=== PATIENT | female | born 1955 | race Hispanic/Latino ===

== ENCOUNTER 2018-10-15 11:56 | Inpatient (IN) | payer MEDICAID ==
[2018-10-15] MEDS ORDERED: Iohexol 240 (50 ml) PO STA (13:23)
[2018-10-15] MEDS ORDERED: Sodium Chloride 0.9% 1,000 ML IV STA (13:23)
[2018-10-15 14:05] LABS: BASO % 0.2 % (0.0-2.0); HEMOGLOBIN 11.9 g/dL (11.0-16.0); LYMPH # 1.2 K/uL (1.0-4.3); LYMPH % 8.4 % (20.0-40.0); MEAN CELL VOLUME 90.6 fL (81.0-99.0); MEAN CORPUSCULAR HEMOGLOBIN 30.8 pg (27.0-31.0); MEAN PLATELET VOLUME 9.5 fL (7.2-11.7); MONO # 0.9 K/uL (0.0-0.8); MONO % 6.2 % (0.0-10.0); NEUT # 12.6 K/uL (1.8-7.0); NEUT % 85.2 % (50.0-75.0); NRBC % 0.1 % (0.0-2.0); PLATELET COUNT 260 K/uL (130-400); RBC 3.87 Mil/uL (3.80-5.20); RED CELL DISTRIBUTION WIDTH 12.3 % (11.5-14.5); WHITE BLOOD COUNT 14.8 K/uL (4.8-10.8)
[2018-10-15] MEDS ORDERED: Iohexol 240 (50 ml) ONE (14:05)
[2018-10-15 14:18] LABS: ALBUMIN 4.4 g/dL (3.5-5.0); ALT/SGPT 11 U/L (9-52); AST/SGOT 18 U/L (14-36); BLOOD UREA NITROGEN 13 mg/dL (7-17); CALCIUM 9.2 mg/dl (8.6-10.4); GFR NON-AFRICAN AMERICAN > 60; LIPASE 44 U/L (23-300)
[2018-10-15 14:26] LABS: LYMPHOCYTE 11 % (20-40); MONOCYTE 3 % (0-10); NEUTROPHIL 86 % (50-75); TOTAL CELLS COUNTED 100
[2018-10-15 14:27] LABS: PLATELET ESTIMATE NORMAL (NORMAL)
[2018-10-15 14:43] LABS: SQUAMOUS EPITHIAL < 1 /hpf (0-5); URINE BACTERIA OCC (<OCC); URINE BILIRUBIN NEGATIVE (NEGATIVE); URINE BLOOD 1+ (NEGATIVE); URINE CLARITY Hazy (Clear); URINE COLOR Yellow (YELLOW); URINE GLUCOSE (UA) NORMAL (Normal); URINE LEUKOCYTE ESTERASE 3+ Leu/uL (Negative); URINE PROTEIN 2+ mg/dL (NEGATIVE); URINE UROBILINOGEN NORMAL mg/dL (0.2-1.0); WBC CLUMPS FEW /hpf
--- NOTE | 2018-10-15 15:08 | C.PDOC ---
History Of Present Illness 63 year old female with complaint of right-sided abdominal pain that streatches from the right upper quadrant to the right lower quadrant that began yesterday. Patient also states that she has experienced two episodes of diarrhea.Patient denies nausea and vomiting. Time Seen by Provider: 10/15/18 12:41 Chief Complaint (Nursing): Flu-like Symptoms History Per: Patient History/Exam Limitations: no limitations Onset/Duration Of Symptoms: Days (1) Current Symptoms Are (Timing): Still Present Location Of Pain/Discomfort: RUQ, RLQ Quality Of Discomfort: "Pain" Associated Symptoms: Diarrhea (2 episodes). denies: Fever, Nausea, Vomiting Past Medical History Reviewed: Historical Data, Nursing Documentation, Vital Signs Vital Signs: Last Vital Signs Temp 98.6 F 10/15/18 12:08 Pulse 99 H 10/15/18 12:08 Resp 18 10/15/18 12:08 BP 125/80 10/15/18 12:08 Pulse Ox 98 10/15/18 12:08 - Medical History PMH: No Chronic Diseases Surgical History: No Surg Hx Family History: States: Unknown Family Hx - Social History Hx Alcohol Use: No Hx Substance Use: No - Immunization History Hx Influenza Vaccination: Yes Hx Pneumococcal Vaccination: No Review Of Systems Constitutional: Negative for: Fever, Chills, Weakness Gastrointestinal: Positive for: Abdominal Pain (right-sided), Diarrhea (2 episodes). Negative for: Nausea, Vomiting Neurological: Negative for: Weakness, Numbness, Dizziness Physical Exam - Physical Exam Appears: Well, Non-toxic, No Acute Distress Skin: Normal Color, Warm, Dry Head: Atraumatic, Normacephalic Eye(s): bilateral: Normal Inspection Neck: Normal ROM Chest: Symmetrical, No Deformity Cardiovascular: Rhythm Regular, No Murmur Respiratory: Normal Breath Sounds, No Rales, No Rhonchi, No Wheezing Gastrointestinal/Abdominal: Soft, Tenderness (to RUQ and RLQ), No Guarding, No Other (Dsouza's sign) Extremity: Capillary Refill (<2 seconds) Extremity: Bilateral: Atraumatic, Normal Color And Temperature Pulses: Left Radial: Normal, Right Radial: Normal Neurological/Psych: Oriented x3, Normal Speech, Normal Cognition ED Course And Treatment - Laboratory Results Result Diagrams: 10/15/18 13:56 10/15/18 13:56 Lab Results: Total Bilirubin 0.8 mg/dL (0.2-1.3) 10/15/18 13:56 AST 18 U/L (14-36) 10/15/18 13:56 ALT 11 U/L (9-52) 10/15/18 13:56 Alkaline Phosphatase 94 U/L (38-126) 10/15/18 13:56 Total Protein 8.7 g/dL (6.3-8.3) H 10/15/18 13:56 Albumin 4.4 g/dL (3.5-5.0) 10/15/18 13:56 Globulin 4.3 gm/dL (2.2-3.9) H 10/15/18 13:56 Albumin/Globulin Ratio 1.0 (1.0-2.1) 10/15/18 13:56 Lipase 44 U/L (23-300) 10/15/18 13:56 Urine Color Yellow (YELLOW) 10/15/18 14:20 Urine Clarity Hazy (Clear) 10/15/18 14:20 Urine pH 5.0 (5.0-8.0) 10/15/18 14:20 Ur Specific [place] 1.013 (1.003-1.030) 10/15/18 14:20 Urine Protein 2+ mg/dL (NEGATIVE) H 10/15/18 14:20 Urine Glucose (UA) Normal mg/dL (Normal) 10/15/18 14:20 Urine Ketones Trace mg/dL (NEGATIVE) 10/15/18 14:20 Urine Blood 1+ (NEGATIVE) H 10/15/18 14:20 Urine Nitrate Negative (NEGATIVE) 10/15/18 14:20 Urine Bilirubin Negative (NEGATIVE) 10/15/18 14:20 Urine Urobilinogen Normal mg/dL (0.2-1.0) 10/15/18 14:20 Ur Leukocyte Esterase 3+ Viola/uL (Negative) H 10/15/18 14:20 Urine WBC (Auto) 359 /hpf (0-5) H 10/15/18 14:20 Urine RBC (Auto) 5 /hpf (0-3) H 10/15/18 14:20 Urine WBC Clumps (Auto) Few /hpf (NONE) H 10/15/18 14:20 Ur Squamous Epith Cells < 1 /hpf (0-5) 10/15/18 14:20 Urine Bacteria Occ (<OCC) H 10/15/18 14:20 O2 Sat by Pulse Oximetry: 98 (RA) - CT Scan/US Abdomen/Pelvis Other Rad Studies (CT/US): Interpreted By Me CT/US Interpretation: Accession No. : [id number]. Patient Name / ID : CARLOS COSTA / [id number]. Exam Date : 10/15/2018 16:39:47 ( Approved ). Study Comment : Sex / Age : F / 63Y. Creator : Yocasta Hernandez. Dictator : Aster Schmid MD. Adobe Layer : Zigzag Machine Operator : Aster Schmid MD. Approver2 : Report Date : 10/15/2018 16:50:28. My Comment : . PROCEDURE: CT Abdomen and Pelvis with oral and IV contrast. HISTORY: RUQ and RLQ pain. COMPARISON: None available. TECHNIQUE: Contiguous axial images of the abdomen and pelvis. Oral and IV contrast was administered. Coronal and Sagittal reformats generated and reviewed. Contrast dose: 100 mL Omnipaque 350 IV. Radiation dose: Total exam DLP = 426.05 mGy-cm. This CT exam was performed using one or more of the following dose reduction techniques: Automated exposure control, adjustment of the mA and/or kV according to patient size, and/or use of iterative reconstruction technique. FINDINGS: LOWER THORAX: No visible consolidation, pleural effusion, or pneumothorax. LIVER: Unremarkable. GALLBLADDER AND BILE DUCTS: Unremarkable. PANCREAS: Pancreatic atrophy. SPLEEN: Unremarkable. ADRENALS: Unremarkable. KIDNEYS AND URETERS: The kidneys enhance symmetrically. No hydronephrosis or obstructing renal calculus. Bmajl-[id number]-jiil-left perinephric inflammatory stranding. Mild proximal bilateral ureteral prominence and questionable subtle enhancement; correlate clinically for possibility of infection. BLADDER: The urinary bladder appears unremarkable. REPRODUCTIVE: Uterus is present. APPENDIX: The appendix appears within normal limits of caliber. No secondary signs of acute appendicitis. BOWEL: The stomach is nondistended. The bowel loops appear within normal limits of caliber without evidence of intestinal obstruction. PERITONEUM: No significant free fluid. No definite free air. LYMPH NODES: No bulky lymphadenopathy identified. VASCULATURE: No aortic aneurysm. Mild atherosclerotic calcifications. BONES: Mild degenerative changes. OTHER FINDINGS: None. IMPRESSION: Right greater than left nonspecific perinephric stranding. Mild proximal bilateral ureteral prominence and questionable subtle enhancement; correlate clinically for possibility of infection. The appendix appears within normal limits of caliber. No secondary signs of acute appendicitis. Progress Note: Abd/ pelvis CT,CMP, Lipase, Urine culture, and urinalysis ordered for patient. Patient was given Iohexol PO and NaCl IV. UA shows + bacteria, WBC, and blood. CT scan confirms diagnosis of pyelonephritis. Spoke with Dr. Jacinto, accepts patient for observation and IV antibiotics. Disposition - Disposition Disposition: HOSPITALIZED Disposition Time: 18:24 Condition: FAIR Forms: [facility] (Serbian) - Clinical Impression Clinical Impression: Pyelonephritis - PA / ORTHOTIC PRACTITIONER / Resident Statement MD/DO has reviewed & agrees with the documentation as recorded. (Tracie Simmons) - Scribe Statement The provider has reviewed the documentation as recorded by the Scribe (Tracie Simmons) All medical record entries made by the Scribe were at my direction and per sonally dictated by me. I have reviewed the chart and agree that the record accurately reflects my personal performance of the history, physical exam, medical decision making, and the department course for this patient. I have also personally directed, reviewed, and agree with the discharge instructions and disposition. Decision To Admit - Pt Status Changed To: Hospital Disposition Of: Observation - . Bed Request Type: Regular Admitting Physician: Feroz Jacinto Patient Diagnosis: Pyelonephritis
--- NOTE | 2018-10-15 17:27 | CT ---
PROCEDURE: CT Abdomen and Pelvis with oral and IV contrast. HISTORY: RUQ and RLQ pain COMPARISON: None available TECHNIQUE: Contiguous axial images of the abdomen and pelvis. Oral and IV contrast was administered. Coronal and Sagittal reformats generated and reviewed. Contrast dose: 100 mL Omnipaque 350 IV Radiation dose: Total exam DLP = 426.05 mGy-cm. This CT exam was performed using one or more of the following dose reduction techniques: Automated exposure control, adjustment of the mA and/or kV according to patient size, and/or use of iterative reconstruction technique. FINDINGS: LOWER THORAX: No visible consolidation, pleural effusion, or pneumothorax. LIVER: Unremarkable. GALLBLADDER AND BILE DUCTS: Unremarkable. PANCREAS: Pancreatic atrophy. SPLEEN: Unremarkable. ADRENALS: Unremarkable. KIDNEYS AND URETERS: The kidneys enhance symmetrically. No hydronephrosis or obstructing renal calculus. Fbrxb-ejqcjjs-rsii-left perinephric inflammatory stranding. Mild proximal bilateral ureteral prominence and questionable subtle enhancement; correlate clinically for possibility of infection. BLADDER: The urinary bladder appears unremarkable. REPRODUCTIVE: Uterus is present. APPENDIX: The appendix appears within normal limits of caliber. No secondary signs of acute appendicitis. BOWEL: The stomach is nondistended. The bowel loops appear within normal limits of caliber without evidence of intestinal obstruction. PERITONEUM: No significant free fluid. No definite free air. LYMPH NODES: No bulky lymphadenopathy identified. VASCULATURE: No aortic aneurysm. Mild atherosclerotic calcifications. BONES: Mild degenerative changes. OTHER FINDINGS: None. IMPRESSION: Right greater than left nonspecific perinephric stranding. Mild proximal bilateral ureteral prominence and questionable subtle enhancement; correlate clinically for possibility of infection. The appendix appears within normal limits of caliber. No secondary signs of acute appendicitis.
--- NOTE | 2018-10-15 19:39 | CP.PCM.HP ---
<Chintan Siddiqui - Last Filed: 10/15/18 20:33> History of Present Illness - History of Present Illness History of Present Illness: PGY1 H&P for Medicine Hospitalist CC: abdominal pain, dysuria This is a 63 year old female with no significant PMH who presents with worsening abdominal pain with dysuria, urinary frequency for the past 2 days. She describes the pain as sharp. Patient also endorses tactile fever and chills during this same time, with associated palpitations. She denies headache, dizziness, lightheadedness, chest pain, sob, n/v, hematochezia, melena, hematuria, vaginal discharge, recent illness, recent travel, recent hospitalizations, recent antibiotics use. Pt also reports 2 isolated incidents of loose bowel movements 2 days ago, denies recurrence since. She has not taken any medications at home for the pain. PMD: none PMH: denies PSH: c/s x1 Meds: denies Allx: lettuce and pepper - anaphylaxis FHx: Father, mother, and sister with DM, HTN, father also has prostate cancer SHx:Denies drug, alcohol, tobacco use, lives with daughter in , recently moved from [place] Present on Admission - Present on Admission Any Indicators Present on Admission: No Past Patient History - Past Social History Smoking Status: Never Smoked - PSYCHIATRIC Hx Substance Use: No - SURGICAL HISTORY Hx Surgeries: No - ANESTHESIA Hx Anesthesia: No Meds Allergies/Adverse Reactions: Allergies Allergy/AdvReac Type Severity Reaction Status Date / Time No Known Allergies Allergy Verified 10/15/18 12:08 Physical Exam - Constitutional Appears: Non-toxic, No Acute Distress - Head Exam Head Exam: ATRAUMATIC, NORMAL INSPECTION - Eye Exam Eye Exam: EOMI, Normal appearance - ENT Exam ENT Exam: Mucous Membranes Dry - Neck Exam Neck exam: Positive for: Normal Inspection - Respiratory Exam Respiratory Exam: Clear to Auscultation Bilateral, NORMAL BREATHING PATTERN. absent: Rales, Respiratory Distress, Stridor - Cardiovascular Exam Cardiovascular Exam: Tachycardia, +S1, +S2 (prominent s2). absent: Systolic Murmur - GI/Abdominal Exam GI & Abdominal Exam: Normal Bowel Sounds, Soft, Tenderness (right flank tenderness). absent: Distended, Firm, Guarding, Rebound, Rigid - Extremities Exam Extremities exam: Positive for: normal capillary refill, normal inspection. Negative for: calf tenderness, pedal edema - Back Exam Back exam: CVA tenderness (R), NORMAL INSPECTION. absent: CVA tenderness (L) - Neurological Exam Neurological exam: Alert, Oriented x3 - Psychiatric Exam Psychiatric exam: Normal Affect, Normal Mood - Skin Skin Exam: Dry, Normal Color, Warm Additional comments: decreased skin turgor Results - Vital Signs Recent Vital Signs: Last Vital Signs Temp 98.3 F 10/15/18 17:09 Pulse 90 10/15/18 17:09 Resp 18 10/15/18 17:09 BP 161/86 H 10/15/18 17:09 Pulse Ox 98 10/15/18 18:40 - Labs Result Diagrams: 10/15/18 13:56 10/15/18 13:56 Labs: Laboratory Results - last 24 hr 10/15/18 10/15/18 10/15/18 13:56 13:56 14:20 WBC 14.8 H RBC 3.87 Hgb 11.9 Hct 35.1 MCV 90.6 MCH 30.8 MCHC 34.0 RDW 12.3 Plt Count 260 MPV 9.5 Neut % (Auto) 85.2 H Lymph % (Auto) 8.4 L Stevens % (Auto) 6.2 Eos % (Auto) 0.0 Baso % (Auto) 0.2 Neut # (Auto) 12.6 H Lymph # (Auto) 1.2 Stevens # (Auto) 0.9 H Eos # (Auto) 0.0 Baso # (Auto) 0.0 Neutrophils % (Manual) 86 H Lymphocytes % (Manual) 11 L Monocytes % (Manual) 3 Platelet Estimate Normal RBC Morphology Normal Sodium 136 Potassium 3.8 Chloride 97 L Carbon Dioxide 32 H Anion Gap 11 BUN 13 Creatinine 0.8 Est GFR ( Amer) > 60 Est GFR (Non-Af Amer) > 60 Random Glucose 117 H Calcium 9.2 Total Bilirubin 0.8 AST 18 ALT 11 Alkaline Phosphatase 94 Total Protein 8.7 H Albumin 4.4 Globulin 4.3 H Albumin/Globulin Ratio 1.0 Lipase 44 Urine Color Yellow Urine Clarity Hazy Urine pH 5.0 Ur Specific [place] 1.013 Urine Protein 2+ H Urine Glucose (UA) Normal Urine Ketones Trace Urine Blood 1+ H Urine Nitrate Negative Urine Bilirubin Negative Urine Urobilinogen Normal Ur Leukocyte Esterase 3+ H Urine WBC (Auto) 359 H Urine RBC (Auto) 5 H Urine WBC Clumps (Auto) Few H Ur Squamous Epith Cells < 1 Urine Bacteria Occ H Assessment & Plan - Assessment and Plan (Free Text) Assessment: This is a 63 year old female with no significant PMH who presents with abdominal pain and diarrhea. Plan: Sepsis secondary to acute pyelonephritis Code sepsis called in the ED Leukocyte count is 14.8, Tachycardia>90 in the ED Pt afebrile Abdominal/Pelvic CT with PO and IV contrast shows right greater than left perinephric stranding. No signs of appendicitis. Pt treated with Rocephin 1 g IV x1 dose in the ED Continue Rocephin 1 g IV Q24 hr F/u blood cultures, urine culture Hypertension, possibly secondary to pain No need for antihypertensive medication at this time Will continue to monitor and re-evaluate in am F/u EKG GI ppx: protonix 40 mg IVP QD VTE ppx: heparin 5000u SC q12 HHD Dispo: Admit to tele-obs Case was reviewed and discussed with attending physician, Dr. Katiuska Siddiqui PGY1 <Glenn Harp - Last Filed: 10/16/18 06:43> Results - Vital Signs Recent Vital Signs: Last Vital Signs Temp 98 F 10/15/18 23:15 Pulse 109 H 10/16/18 01:00 Resp 20 10/15/18 23:15 BP 107/61 10/15/18 23:15 Pulse Ox 96 10/15/18 23:15 - Labs Result Diagrams: 10/15/18 13:56 10/15/18 13:56 Labs: Laboratory Results - last 24 hr 10/15/18 10/15/18 10/15/18 13:56 13:56 14:20 WBC 14.8 H RBC 3.87 Hgb 11.9 Hct 35.1 MCV 90.6 MCH 30.8 MCHC 34.0 RDW 12.3 Plt Count 260 MPV 9.5 Neut % (Auto) 85.2 H Lymph % (Auto) 8.4 L Stevens % (Auto) 6.2 Eos % (Auto) 0.0 Baso % (Auto) 0.2 Neut # (Auto) 12.6 H Lymph # (Auto) 1.2 Stevens # (Auto) 0.9 H Eos # (Auto) 0.0 Baso # (Auto) 0.0 Neutrophils % (Manual) 86 H Lymphocytes % (Manual) 11 L Monocytes % (Manual) 3 Platelet Estimate Normal RBC Morphology Normal Sodium 136 Potassium 3.8 Chloride 97 L Carbon Dioxide 32 H Anion Gap 11 BUN 13 Creatinine 0.8 Est GFR ( Amer) > 60 Est GFR (Non-Af Amer) > 60 Random Glucose 117 H Lactic Acid Calcium 9.2 Total Bilirubin 0.8 AST 18 ALT 11 Alkaline Phosphatase 94 Total Protein 8.7 H Albumin 4.4 Globulin 4.3 H Albumin/Globulin Ratio 1.0 Lipase 44 Urine Color Yellow Urine Clarity Hazy Urine pH 5.0 Ur Specific [place] 1.013 Urine Protein 2+ H Urine Glucose (UA) Normal Urine Ketones Trace Urine Blood 1+ H Urine Nitrate Negative Urine Bilirubin Negative Urine Urobilinogen Normal Ur Leukocyte Esterase 3+ H Urine WBC (Auto) 359 H Urine RBC (Auto) 5 H Urine WBC Clumps (Auto) Few H Ur Squamous Epith Cells < 1 Urine Bacteria Occ H 10/15/18 21:17 WBC RBC Hgb Hct MCV MCH MCHC RDW Plt Count MPV Neut % (Auto) Lymph % (Auto) Stevens % (Auto) Eos % (Auto) Baso % (Auto) Neut # (Auto) Lymph # (Auto) Stevens # (Auto) Eos # (Auto) Baso # (Auto) Neutrophils % (Manual) Lymphocytes % (Manual) Monocytes % (Manual) Platelet Estimate RBC Morphology Sodium Potassium Chloride Carbon Dioxide Anion Gap BUN Creatinine Est GFR ( Amer) Est GFR (Non-Af Amer) Random Glucose Lactic Acid 1.1 Calcium Total Bilirubin AST ALT Alkaline Phosphatase Total Protein Albumin Globulin Albumin/Globulin Ratio Lipase Urine Color Urine Clarity Urine pH Ur Specific [place] Urine Protein Urine Glucose (UA) Urine Ketones Urine Blood Urine Nitrate Urine Bilirubin Urine Urobilinogen Ur Leukocyte Esterase Urine WBC (Auto) Urine RBC (Auto) Urine WBC Clumps (Auto) Ur Squamous Epith Cells Urine Bacteria Assessment & Plan - Date & Time Date: 10/16/18 (I have seen and examined the patient. I agree with the findings and plan of care as documented by Dr. Siddiqui. Patient with pyelonephritis. Rocephin IV. Urine and blood cultures. SIRS criteria met. Code sepsis called in ED. Monitor for acute changes and adjust antibiotics as necessary.) Time: 06:42 Attending/Attestation - Attestation I have personally seen and examined this patient.: Yes I have fully participated in the care of the patient.: Yes I have reviewed all pertinent clinical information: Yes
[2018-10-15] MEDS: Sodium Chloride 0.9% 1,000 ML IV SCH (21:07)
[2018-10-16] MEDS: Sodium Chloride 0.9% 1,000 ML IV SCH ×5 (05:09→23:08)
--- NOTE | 2018-10-16 07:41 | CP.PCM.PN ---
Subjective - Date & Time of Evaluation Date of Evaluation: 10/16/18 Time of Evaluation: 07:40 - Subjective Subjective: PGY-1 Jaclyn Rojas D.O. Medicine progress note for Dr. Burk's service: Patient was seen and examined this morning. Objective - Vital Signs/Intake and Output Vital Signs (last 24 hours): Temp Pulse Resp BP Pulse Ox 98 F 109 H 20 107/61 96 10/15/18 23:15 10/16/18 01:00 10/15/18 23:15 10/15/18 23:15 10/15/18 23:15 - Medications Medications: Current Medications Acetaminophen (Tylenol 325mg Tab) 650 mg PO Q6 PRN PRN Reason: Fever >100.4 F Last Admin: 10/16/18 05:08 Dose: 650 mg Heparin Sodium (Porcine) (Heparin) 5,000 units SC Q12 JUNIOR Last Admin: 10/15/18 21:55 Dose: Not Given Ceftriaxone Sodium (Rocephin Iv 1 Gm Duplex) 50 mls @ 100 mls/hr IVPB DAILY JUNIOR; Protocol Sodium Chloride (Sodium Chloride 0.9%) 1,000 mls @ 150 mls/hr IV .Q6H40M JUNIOR Last Admin: 10/16/18 05:09 Dose: 150 mls/hr Pantoprazole Sodium (Protonix Inj) 40 mg IVP DAILY JUNIOR - Labs Labs: 10/15/18 13:56 10/15/18 13:56
[2018-10-16] MEDS: cefTRIAXone IV 1 gm in Dextros 50 ML IVPB SCH ×2 (08:41→20:30)
[2018-10-16] MEDS ORDERED: cefTRIAXone IV 1 gm in Dextros 50 ML IVPB SCH (10:00)
--- NOTE | 2018-10-16 11:35 | CP.PCM.PN ---
Subjective - Date & Time of Evaluation Date of Evaluation: 10/16/18 Time of Evaluation: 11:30 - Subjective Subjective: Medical attending note Patient seen and examined. Patient daughter present at bedside. 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 Patient reports she has not really been able to take care of herself because she develops return to her father. Patient for the past 4 days has been feeling well. Patient reports her primary symptoms started as urinary frequency and associated dysuria. Patient reports she noticed 2 days later had right sided flank pain. Ultimately she was felt like she was passing on the bathroom which prompted her to come to the hospital. Patient recently was in [place] for the past 4 years. And recently moved up as of March given her mother's condition. Patient reports right-sided pain is tolerable. But she overall is aware that she needs to take better care of herself both in diet spirits and otherwise. Objective - Vital Signs/Intake and Output Vital Signs (last 24 hours): Temp Pulse Resp BP Pulse Ox 97.8 F 81 20 120/67 99 10/16/18 07:20 10/16/18 07:20 10/16/18 07:20 10/16/18 07:20 10/16/18 07:20 - Medications Medications: Current Medications Acetaminophen (Tylenol 325mg Tab) 650 mg PO Q6 PRN PRN Reason: Fever >100.4 F Last Admin: 10/16/18 05:08 Dose: 650 mg Heparin Sodium (Porcine) (Heparin) 5,000 units SC Q12 ON LICENSE OF [facility] Last Admin: 10/16/18 10:56 Dose: 5,000 units Sodium Chloride (Sodium Chloride 0.9%) 1,000 mls @ 150 mls/hr IV .Q6H40M ON LICENSE OF [facility] Last Admin: 10/16/18 10:56 Dose: Not Given Ceftriaxone Sodium (Rocephin Iv 1 Gm Duplex) 50 mls @ 100 mls/hr IVPB Q12H ON LICENSE OF [facility]; Protocol Last Admin: 10/16/18 08:41 Dose: 100 mls/hr Pantoprazole Sodium (Protonix Inj) 40 mg IVP DAILY ON LICENSE OF [facility] Last Admin: 10/16/18 10:56 Dose: 40 mg - Labs Labs: 10/15/18 13:56 10/15/18 13:56 - Constitutional Appears: Non-toxic, No Acute Distress - Head Exam Head Exam: NORMAL INSPECTION - Eye Exam Eye Exam: EOMI - ENT Exam ENT Exam: Mucous Membranes Moist - Respiratory Exam Respiratory Exam: Clear to Ausculation Bilateral, NORMAL BREATHING PATTERN. absent: Rales, Rhonchi, Wheezes - Cardiovascular Exam Cardiovascular Exam: REGULAR RHYTHM, +S1, +S2 - GI/Abdominal Exam GI & Abdominal Exam: Soft, Normal Bowel Sounds. absent: Distended, Firm, Guarding, Rigid, Tenderness, Rebound - Extremities Exam Extremities Exam: absent: Pedal Edema, Tenderness - Neurological Exam Neurological Exam: Alert, Awake, Oriented x3 - Psychiatric Exam Psychiatric exam: Normal Affect, Normal Mood - Skin Skin Exam: Dry, Intact, Normal Color, Warm Assessment and Plan (1) Sepsis Status: Acute (2) Depression Status: Acute (3) Caregiver stress Status: Acute (4) Diarrhea Status: Acute (5) Pyelonephritis Status: Acute (6) Prophylactic measure Status: Acute Attending/Attestation - Attestation I have personally seen and examined this patient.: Yes I have fully participated in the care of the patient.: Yes I have reviewed all pertinent clinical information, including history, physical exam and plan: Yes Notes (Text): 1. Sepsis secondary Pylenephritis Assessment/Plan * Criteria; leukocytosis, febrile; source; pyelonephritis * urine culture (10/15/18): gram negative pending * blood culture (10/15/18): pending * lactic acid: 1.1 * Code sepsis not called secondary to normal lactate will continue to monitor * CT abdomen pelvis: Right greater than left nonspecific perinephric stranding. Mild proximal bilateral prominence of questionable subtle enhancement possibility of infection. Appendix appears within normal limits in caliber. No secondary signs of acute sinusitis. * Rocephin 1 gram IV Q12H * Florastor 250mg PO BID 2. Diarrhea Assessment/Plan * pending stool ova and parasite, culture, leukocytes 3. Caregiver stress Assessment/Plan * pastoral care 4. Prophylactic measure * IV fluids * heparin 5000 units sub12H * NS 150cc/hr * Tylenol 650mg POq6H prn T: 100.4F * GI ppx: protonix 40mg IV q daily
[2018-10-16 11:56] LABS: BASO # 0.1 K/uL (0.0-0.2); BASO % 0.5 % (0.0-2.0); EOS # 0.1 K/uL (0.0-0.7); EOS % 0.5 % (0.0-4.0); HEMOGLOBIN 10.8 g/dL (11.0-16.0); LYMPH # 1.7 K/uL (1.0-4.3); LYMPH % 15.8 % (20.0-40.0); MEAN CELL VOLUME 91.5 fL (81.0-99.0); MEAN CORPUSCULAR HGB CONC 33.9 g/dL (33.0-37.0); MEAN PLATELET VOLUME 8.8 fL (7.2-11.7); MONO # 0.8 K/uL (0.0-0.8); MONO % 7.1 % (0.0-10.0); NEUT # 8.2 K/uL (1.8-7.0); NEUT % 76.1 % (50.0-75.0); NRBC % 0.1 % (0.0-2.0); RBC 3.49 Mil/uL (3.80-5.20); RED CELL DISTRIBUTION WIDTH 12.7 % (11.5-14.5); WHITE BLOOD COUNT 10.7 K/uL (4.8-10.8)
[2018-10-16 12:32] LABS: ALBUMIN 3.5 g/dL (3.5-5.0); ALT/SGPT 21 U/L (9-52); AST/SGOT 31 U/L (14-36); BLOOD UREA NITROGEN 8 mg/dL (7-17); CALCIUM 8.3 mg/dl (8.6-10.4); GFR NON-AFRICAN AMERICAN > 60
[2018-10-16] MEDS: Saccharomyces Boulardi 250 mg Cap PO SCH ×2 (13:40→17:46)
[2018-10-17 01:41] VITALS: RESP 20
[2018-10-17] MEDS: Sodium Chloride 0.9% 1,000 ML IV SCH (05:48)
--- NOTE | 2018-10-17 06:52 | CP.PCM.DIS ---
<Jaclyn Rojas - Last Filed: 10/17/18 14:07> Provider - Provider Date of Admission: 10/16/18 11:41 Attending physician: Latasha Burk DO Primary care physician: none Consults: 10/16/18 11:42 Pastoral Care Referral Routine Comment: Physician Instructions: Reason For Exam: caregiver stress Time Spent in preparation of Discharge (in minutes): 45 Diagnosis - Discharge Diagnosis (1) Pyelonephritis Status: Acute Priority: High (2) Sepsis Status: Resolved Priority: High Hospital Course - Lab Results Lab Results: Micro Results 10/15/18 21:15 Blood-Venous Blood Culture - Preliminary NO GROWTH AFTER 24 HOURS 10/15/18 21:00 Blood-Venous Blood Culture - Preliminary NO GROWTH AFTER 24 HOURS 10/15/18 15:33 Urine,Clean Catch Urine Culture - Preliminary Gram Negative Burton Most Recent Lab Values WBC 10.7 K/uL (4.8-10.8) 10/16/18 11:47 RBC 3.49 Mil/uL (3.80-5.20) L 10/16/18 11:47 Hgb 10.8 g/dL (11.0-16.0) L 10/16/18 11:47 Hct 31.9 % (34.0-47.0) L 10/16/18 11:47 MCV 91.5 fL (81.0-99.0) 10/16/18 11:47 MCH 31.0 pg (27.0-31.0) 10/16/18 11:47 MCHC 33.9 g/dL (33.0-37.0) 10/16/18 11:47 RDW 12.7 % (11.5-14.5) 10/16/18 11:47 Plt Count 228 K/uL (130-400) 10/16/18 11:47 MPV 8.8 fL (7.2-11.7) 10/16/18 11:47 Neut % (Auto) 76.1 % (50.0-75.0) H 10/16/18 11:47 Lymph % (Auto) 15.8 % (20.0-40.0) L 10/16/18 11:47 Atkinson % (Auto) 7.1 % (0.0-10.0) 10/16/18 11:47 Eos % (Auto) 0.5 % (0.0-4.0) 10/16/18 11:47 Baso % (Auto) 0.5 % (0.0-2.0) 10/16/18 11:47 Neut # (Auto) 8.2 K/uL (1.8-7.0) H 10/16/18 11:47 Lymph # (Auto) 1.7 K/uL (1.0-4.3) 10/16/18 11:47 Atkinson # (Auto) 0.8 K/uL (0.0-0.8) 10/16/18 11:47 Eos # (Auto) 0.1 K/uL (0.0-0.7) 10/16/18 11:47 Baso # (Auto) 0.1 K/uL (0.0-0.2) 10/16/18 11:47 Neutrophils % (Manual) 86 % (50-75) H 10/15/18 13:56 Lymphocytes % (Manual) 11 % (20-40) L 10/15/18 13:56 Monocytes % (Manual) 3 % (0-10) 10/15/18 13:56 Platelet Estimate Normal (NORMAL) 10/15/18 13:56 RBC Morphology Normal 10/15/18 13:56 APTT 30 SECONDS (21-34) 10/16/18 11:47 Sodium 139 mmol/L (132-148) 10/16/18 11:47 Potassium 3.8 mmol/L (3.6-5.2) 10/16/18 11:47 Chloride 106 mmol/L (98-107) 10/16/18 11:47 Carbon Dioxide 29 mmol/L (22-30) 10/16/18 11:47 Anion Gap 8 (10-20) L 10/16/18 11:47 BUN 8 mg/dL (7-17) 10/16/18 11:47 Creatinine 0.6 mg/dL (0.7-1.2) L 10/16/18 11:47 Est GFR ( Amer) > 60 10/16/18 11:47 Est GFR (Non-Af Amer) > 60 10/16/18 11:47 Random Glucose 105 mg/dL (65-105) 10/16/18 11:47 Lactic Acid 1.1 mmol/L (0.7-2.1) 10/15/18 21:17 Calcium 8.3 mg/dl (8.6-10.4) L 10/16/18 11:47 Phosphorus 2.8 mg/dL (2.5-4.5) 10/16/18 11:47 Magnesium 1.9 mg/dL (1.6-2.3) 10/16/18 11:47 Total Bilirubin 0.4 mg/dL (0.2-1.3) 10/16/18 11:47 AST 31 U/L (14-36) 10/16/18 11:47 ALT 21 U/L (9-52) 10/16/18 11:47 Alkaline Phosphatase 77 U/L (38-126) 10/16/18 11:47 Total Protein 6.9 g/dL (6.3-8.3) 10/16/18 11:47 Albumin 3.5 g/dL (3.5-5.0) D 10/16/18 11:47 Globulin 3.5 gm/dL (2.2-3.9) 10/16/18 11:47 Albumin/Globulin Ratio 1.0 (1.0-2.1) 10/16/18 11:47 Lipase 44 U/L (23-300) 10/15/18 13:56 Urine Color Yellow (YELLOW) 10/15/18 14:20 Urine Clarity Hazy (Clear) 10/15/18 14:20 Urine pH 5.0 (5.0-8.0) 10/15/18 14:20 Ur Specific [place] 1.013 (1.003-1.030) 10/15/18 14:20 Urine Protein 2+ mg/dL (NEGATIVE) H 10/15/18 14:20 Urine Glucose (UA) Normal mg/dL (Normal) 10/15/18 14:20 Urine Ketones Trace mg/dL (NEGATIVE) 10/15/18 14:20 Urine Blood 1+ (NEGATIVE) H 10/15/18 14:20 Urine Nitrate Negative (NEGATIVE) 10/15/18 14:20 Urine Bilirubin Negative (NEGATIVE) 10/15/18 14:20 Urine Urobilinogen Normal mg/dL (0.2-1.0) 10/15/18 14:20 Ur Leukocyte Esterase 3+ Viola/uL (Negative) H 10/15/18 14:20 Urine WBC (Auto) 359 /hpf (0-5) H 10/15/18 14:20 Urine RBC (Auto) 5 /hpf (0-3) H 10/15/18 14:20 Urine WBC Clumps (Auto) Few /hpf (NONE) H 10/15/18 14:20 Ur Squamous Epith Cells < 1 /hpf (0-5) 10/15/18 14:20 Urine Bacteria Occ (<OCC) H 10/15/18 14:20 - Hospital Course Hospital Course: Patient is a 63 year old female with no past medical history who presented to the ED with worsening R-sided abdominal pain, dysuria, and urinary frequency for the past 2 days. She described her pain as sharp and radiating to the back and rated the pain as an 8/10. She reports associated fever, chills, and palpitations. Patient also reported 2 isolated incidents of loose bowel movements 2 days prior to hospitalization but denies recurrence since. She has not taken any medications at home for the pain. She denied headache, dizziness, lightheadedness, chest pain, SOB, nausea, vomiting, hematochezia, melena, hematuria, vaginal discharge, recent illness, recent travel, recent hospitalizations, or recent antibiotic use. Patient met sepsis criteria as she was febrile (100.5) and tachycardic on admission. Leukocyte count on admission was 14.8 with L-shift. Urinalysis showed 2+ protein, 1+ blood, 3+ leukocyte esterase, 359 WBC, 5 RBC, and bacteria. Abdomen/pelvic CT showed right greater than left nonspecific perinephric stranding, mild proximal bilateral ureteral prominence and questionable subtle enhancement which correlate clinically for possibility of infection, and appendix within normal limits of caliber with no secondary signs of acute appendicitis. Patient was started on Rocephin 1 gram IV Q12H and IVF for sepsis 2/2 pyelonephritis. Final urine culture was positive for E. coli growth- resistant only to ciprofloxacin. Blood cultures showed no growth after 24 hours. Renal US only showed nonobstructing stone. Upon discharge, patient reported alleviation of her abdominal pain and dysuria as well as her systemic symptoms. She had no acute complaints. Patient is to continue home on antibiotics twice daily for 7 days and probiotics for 30 days and to monitor for recurrence of any symptoms. She is to follow up with the [facility] clinic on SaturdayOctober 29 at 1 PM for a new patient appointment. Discharge Exam - Head Exam Head Exam: NORMAL INSPECTION - Eye Exam Eye Exam: EOMI, Normal appearance - ENT Exam ENT Exam: Mucous Membranes Moist - Neck Exam Neck exam: Normal Inspection - Respiratory Exam Respiratory Exam: Clear to PA & Lateral, NORMAL BREATHING PATTERN, UNREMARKABLE - Cardiovascular Exam Cardiovascular Exam: RRR, +S1, +S2 - GI/Abdominal Exam GI & Abdominal Exam: Soft, Unremarkable. absent: Distended, Tenderness - Extremities Exam Extremities exam: normal inspection - Back Exam Back exam: absent: CVA tenderness (L), CVA tenderness (R) - Neurological Exam Neurological exam: Alert, CN II-XII Intact, Normal Gait, Oriented x3 - Psychiatric Exam Psychiatric exam: Normal Affect, Normal Mood - Skin Skin Exam: Dry, Intact, Normal Color, Warm Discharge Plan - Discharge Medications Prescriptions: Cefpodoxime [Vantin] 100 mg PO BID 7 Days #14 tab Lactobacillus Acidophilus [Bacid Acidophilus] 1 cap PO BID 30 Days #60 cap - Follow Up Plan Condition: IMPROVED Disposition: HOME/ ROUTINE Patient education suggested?: Yes Instructions: Heart Healthy Diet, Urinary Tract Infection, Adult (DC), Sepsis, Adult (DC), Cefpodoxime, Lactobacillus Additional Instructions: Follow-up at the [facility] at [facility]. You have an appointment assembly person [phone] if you need assistance. This will serve as your primary care provider. You are being prescribed Cefpodoxime, an antibiotic. Take 100 mg by mouth twice daily for a total of 7 days. You are also being prescribed Lactobacillus, a probiotic, to help with GI/stomach upset. Take twice daily for a total of 30 days. If symptoms recur, return to the nearest emergency room. Referrals: [facility] [Outside] - 11/11/18 1:30 pm <Latasha Burk V - Last Filed: 10/20/18 16:22> Provider - Provider Date of Admission: 10/16/18 11:41 Attending physician: Latasha Burk DO Consults: 10/16/18 11:42 Pastoral Care Referral Routine Comment: Physician Instructions: Reason For Exam: caregiver stress Diagnosis - Discharge Diagnosis (1) Sepsis Status: Resolved Priority: High (2) Depression Status: Acute (3) Caregiver stress Status: Acute (4) Prophylactic measure Status: Acute (5) Diarrhea Status: Acute (6) Pyelonephritis Status: Acute Priority: High Hospital Course - Lab Results Lab Results: Micro Results 10/15/18 21:15 Blood-Venous Blood Culture - Preliminary NO GROWTH AFTER 4 DAYS 10/15/18 21:00 Blood-Venous Blood Culture - Preliminary NO GROWTH AFTER 4 DAYS 10/17/18 14:31 Urine,Clean Catch Urine Culture - Final No Growth (<1,000 CFU/ML) 10/15/18 15:33 Urine,Clean Catch Urine Culture - Final Escherichia Coli Most Recent Lab Values WBC 6.8 K/uL (4.8-10.8) 10/17/18 06:51 RBC 3.39 Mil/uL (3.80-5.20) L 10/17/18 06:51 Hgb 10.4 g/dL (11.0-16.0) L 10/17/18 06:51 Hct 30.5 % (34.0-47.0) L 10/17/18 06:51 MCV 90.0 fL (81.0-99.0) 10/17/18 06:51 MCH 30.8 pg (27.0-31.0) 10/17/18 06:51 MCHC 34.2 g/dL (33.0-37.0) 10/17/18 06:51 RDW 12.1 % (11.5-14.5) 10/17/18 06:51 Plt Count 235 K/uL (130-400) 10/17/18 06:51 MPV 9.4 fL (7.2-11.7) 10/17/18 06:51 Neut % (Auto) 70.3 % (50.0-75.0) 10/17/18 06:51 Lymph % (Auto) 19.9 % (20.0-40.0) L 10/17/18 06:51 Atkinson % (Auto) 8.0 % (0.0-10.0) 10/17/18 06:51 Eos % (Auto) 1.2 % (0.0-4.0) 10/17/18 06:51 Baso % (Auto) 0.6 % (0.0-2.0) 10/17/18 06:51 Neut # (Auto) 4.8 K/uL (1.8-7.0) 10/17/18 06:51 Lymph # (Auto) 1.3 K/uL (1.0-4.3) 10/17/18 06:51 Atkinson # (Auto) 0.5 K/uL (0.0-0.8) 10/17/18 06:51 Eos # (Auto) 0.1 K/uL (0.0-0.7) 10/17/18 06:51 Baso # (Auto) 0.0 K/uL (0.0-0.2) 10/17/18 06:51 Neutrophils % (Manual) 86 % (50-75) H 10/15/18 13:56 Lymphocytes % (Manual) 11 % (20-40) L 10/15/18 13:56 Monocytes % (Manual) 3 % (0-10) 10/15/18 13:56 Platelet Estimate Normal (NORMAL) 10/15/18 13:56 RBC Morphology Normal 10/15/18 13:56 APTT 30 SECONDS (21-34) 10/16/18 11:47 Sodium 138 mmol/L (132-148) 10/17/18 06:51 Potassium 3.2 mmol/L (3.6-5.2) L 10/17/18 06:51 Chloride 104 mmol/L (98-107) 10/17/18 06:51 Carbon Dioxide 28 mmol/L (22-30) 10/17/18 06:51 Anion Gap 9 (10-20) L 10/17/18 06:51 BUN 4 mg/dL (7-17) L 10/17/18 06:51 Creatinine 0.6 mg/dL (0.7-1.2) L 10/17/18 06:51 Est GFR ( Amer) > 60 10/17/18 06:51 Est GFR (Non-Af Amer) > 60 10/17/18 06:51 Random Glucose 92 mg/dL (65-105) 10/17/18 06:51 Lactic Acid 1.1 mmol/L (0.7-2.1) 10/15/18 21:17 Calcium 8.4 mg/dl (8.6-10.4) L 10/17/18 06:51 Phosphorus 3.0 mg/dL (2.5-4.5) 10/17/18 06:51 Magnesium 1.8 mg/dL (1.6-2.3) 10/17/18 06:51 Total Bilirubin 0.3 mg/dL (0.2-1.3) 10/17/18 06:51 AST 26 U/L (14-36) 10/17/18 06:51 ALT 26 U/L (9-52) 10/17/18 06:51 Alkaline Phosphatase 83 U/L (38-126) 10/17/18 06:51 Total Protein 6.8 g/dL (6.3-8.3) 10/17/18 06:51 Albumin 3.4 g/dL (3.5-5.0) L 10/17/18 06:51 Globulin 3.4 gm/dL (2.2-3.9) 10/17/18 06:51 Albumin/Globulin Ratio 1.0 (1.0-2.1) 10/17/18 06:51 Lipase 44 U/L (23-300) 10/15/18 13:56 Urine Color Straw (YELLOW) 10/17/18 14:31 Urine Clarity Clear (Clear) 10/17/18 14:31 Urine pH 7.0 (5.0-8.0) 10/17/18 14:31 Ur Specific [place] 1.004 (1.003-1.030) 10/17/18 14:31 Urine Protein Negative mg/dL (NEGATIVE) 10/17/18 14:31 Urine Glucose (UA) Normal mg/dL (Normal) 10/17/18 14:31 Urine Ketones Negative mg/dL (NEGATIVE) 10/17/18 14:31 Urine Blood Negative (NEGATIVE) 10/17/18 14:31 Urine Nitrate Negative (NEGATIVE) 10/17/18 14:31 Urine Bilirubin Negative (NEGATIVE) 10/17/18 14:31 Urine Urobilinogen Normal mg/dL (0.2-1.0) 10/17/18 14:31 Ur Leukocyte Esterase Trace Viola/uL (Negative) 10/17/18 14:31 Urine WBC (Auto) 2 /hpf (0-5) 10/17/18 14:31 Urine RBC (Auto) < 1 /hpf (0-3) 10/17/18 14:31 Urine WBC Clumps (Auto) Few /hpf (NONE) H 10/15/18 14:20 Ur Squamous Epith Cells 1 /hpf (0-5) 10/17/18 14:31 Urine Bacteria Rare (<OCC) 10/17/18 14:31 Attending/Attestation - Attestation I have personally seen and examined this patient.: Yes I have fully participated in the care of the patient.: Yes I have reviewed all pertinent clinical information, including history, physical exam and plan: Yes Notes (Text): This is late computer entry 10/17/18. Patient seen, examined and case discussed with day-time resident. Patient reports her symptoms has improved. patients' right flank pain has resolved. Patient reports less dysuria. Patient would like to go home. Patient discharged on Vanctin 100mg PO BID for 7 days to start 10/18/18 and Lactobacilus Acidophilus 1 tab PO BID as probiotic. Patient will need to establish care at the [facility] since her recent move from [place]. patient provided information at time of discharge. This is a summary of patient's hospitalization. Please see EMR for full detail of record. Discharge Diagnoses: 1. Sepsis secondary Pyleonephritis-->improved Assessment/Plan * Criteria; leukocytosis, febrile; source; pyelonephritis * urine culture (10/15/18): E. Coli * blood culture (10/15/18): negative * Repeat urine culture: no growth * lactic acid: 1.1 * Code sepsis not called secondary to normal lactate will continue to monitor * CT abdomen pelvis: Right greater than left nonspecific perinephric stranding. Mild proximal bilateral prominence of questionable subtle enhancement possibility of infection. Appendix appears within normal limits in caliber. No secondary signs of acute sinusitis. * Rocephin 1 gram IV Q12H * Florastor 250mg PO BID * Patient discharged on Vantin 100mg PO BID for 7 days (14 tabs) with probiotic. 2. Diarrhea (resolved) Assessment/Plan * pending stool ova and parasite, culture, leukocytes * Not collected because patient no longer has diarrhea 3. Caregiver stress Assessment/Plan * pastoral care 4. Renal Lesion * Renal US (10/17/18): 0.7 cm nonobstructing renal calculus at the mid to lower pole of left kidney. Questionable echognic lesion at the midpole of the left kidney 0.7cm. No evidence of significant hydronephrosis. * Follow-up as outpatient 5. Prophylactic measure * heparin 5000 units sub12H * NS 150cc/hr * Tylenol 650mg POq6H prn T: 100.4F * GI ppx: protonix 40mg IV q daily
[2018-10-17 06:57] LABS: BASO % 0.6 % (0.0-2.0); EOS # 0.1 K/uL (0.0-0.7); EOS % 1.2 % (0.0-4.0); HEMOGLOBIN 10.4 g/dL (11.0-16.0); LYMPH # 1.3 K/uL (1.0-4.3); LYMPH % 19.9 % (20.0-40.0); MEAN CORPUSCULAR HEMOGLOBIN 30.8 pg (27.0-31.0); MEAN CORPUSCULAR HGB CONC 34.2 g/dL (33.0-37.0); MEAN PLATELET VOLUME 9.4 fL (7.2-11.7); MONO # 0.5 K/uL (0.0-0.8); NEUT # 4.8 K/uL (1.8-7.0); NEUT % 70.3 % (50.0-75.0); RBC 3.39 Mil/uL (3.80-5.20); RED CELL DISTRIBUTION WIDTH 12.1 % (11.5-14.5); WHITE BLOOD COUNT 6.8 K/uL (4.8-10.8)
[2018-10-17 07:51] LABS: ALBUMIN 3.4 g/dL (3.5-5.0); ALT/SGPT 26 U/L (9-52); AST/SGOT 26 U/L (14-36); BLOOD UREA NITROGEN 4 mg/dL (7-17); CALCIUM 8.4 mg/dl (8.6-10.4); GFR NON-AFRICAN AMERICAN > 60
[2018-10-17] MEDS ORDERED: Potassium Chloride 20 mEq ER Tab PO ONE (08:00)
[2018-10-17] MEDS: cefTRIAXone IV 1 gm in Dextros 50 ML IVPB SCH ×2 (08:18→18:34)
[2018-10-17] MEDS: Saccharomyces Boulardi 250 mg Cap PO SCH ×2 (09:40→17:17)
--- NOTE | 2018-10-17 11:33 | US ---
Date of service: 10/17/2018 PROCEDURE: Ultrasound of the Kidneys HISTORY: r/o hydronephrosis COMPARISON: Comparison is made to the previous CT dated 10/15/2018. TECHNIQUE: Sonogram of the kidneys. FINDINGS: RIGHT KIDNEY: Measures: 12.2 x 4 x 4.5 cm. Normal in size, contour and echogenicity. No stone, solid mass lesion or hydronephrosis visualized. LEFT KIDNEY: Measures: 10.9 x 4.4 x 4.3 cm. Normal in size, contour and echogenicity. There is nonobstructing calculus at the midpole of the left kidney measures 0.7 centimeter. There is also echogenic lesion at the midpole renal cortex measures 0.7 x 0.73 by 0.7 centimeter. No evidence of left hydronephrosis. OTHER FINDINGS: The urinary bladder is not fully distended. IMPRESSION: 0.7 centimeter nonobstructing renal calculus at the mid to lower pole of left kidney. Questionable echogenic lesion at the midpole of the left kidney measures 0.7 centimeter. No evidence of significant hydronephrosis.
[2018-10-17 14:43] LABS: SQUAMOUS EPITHIAL 1 /hpf (0-5); URINE BACTERIA RARE (<OCC); URINE BILIRUBIN NEGATIVE (NEGATIVE); URINE BLOOD NEGATIVE (NEGATIVE); URINE CLARITY Clear (Clear); URINE COLOR Straw (YELLOW); URINE GLUCOSE (UA) NORMAL (Normal); URINE LEUKOCYTE ESTERASE TRACE Leu/uL (Negative); URINE PROTEIN NEGATIVE (NEGATIVE); URINE UROBILINOGEN NORMAL mg/dL (0.2-1.0)
[2018-10-17 17:59] VITALS: BP 148/77; PULSE 78; TEMP 99; O2SAT 99
--- NOTE | 2018-10-20 23:24 | CARD ---
APPROVED REPORT Date of service: 10/15/2018 EKG Measurement Heart [id number] <Conclusion> Normal sinus rhythm Normal ECG
== END 2018-10-17 19:30 | disposition home or self-care (01) | DRG 463 ==
LOC: C.ER 11:56 → C.9E 18:23 → C.6T 20:40 → OBSVTOIN 10-16 11:41
PROVIDERS: ADMIT Hospitalist; ATTEND Hospitalist
DX: N12 Tubulo-interstitial nephritis, not specified as acute or chronic (principal); F32.9 Major depressive disorder, single episode, unspecified